=== PATIENT | female | born 1995 | race Caucasian/White ===

== ENCOUNTER 2016-08-31 23:30 | Emergency (ER) | payer OTHER ==
--- NOTE | ~2016-08-31 | CT4 ---
[facility]. [facility] A Service of [facility] RADIOLOGY TEXT RESULTS PATIENT: EDI MEDEL LOCATION: SED : 95 UNIT #: [id number] AGE: [address]: Demetrius Lunsford MD SEX: F ORDER DR: [id number] [address] [address] [id number] E MR#: [id number] Acc #: [id number] NAME: EDI MEDEL. : 1995 SEX: F STUDY DATE/TIME: 09/01/2016 0:20 UNIT: SED ROOM: STUDY DESCRIPTION: CT Abd and Pelv Wo Cont Attending Physician: Demetrius Lunsford M.D. Ordering Physician: Demetrius Lunsford M.D. Primary Care Physician: Karthik Wu M.D. MEDICAL IMAGING REPORT This report is preliminary unless electronic signature is present. EXAM CT abdomen and pelvis, noncontrast, 09/01/2016 HISTORY 21-year-old female in the ED complaining of new onset right flank pain and dysuria beginning earlier this evening. She has a history of kidney stones. TECHNIQUE CT examination of the abdomen and pelvis without oral or IV contrast, using kidney stone protocol. This CT exam was performed with one or more of the following radiation dose reduction techniques: Automatic exposure control, adjustment of mA and/or kV according to patient size, and iterative reconstruction. COMPARISON 02/19/2014 FINDINGS There are multiple nonobstructing calculi scattered throughout both kidneys measuring between 1 and 5 mm in size. These have increased in size and number since the previous study. However, there is no visible stone material within the ureters or urinary bladder, and there is no evidence of urinary obstruction at this time. Diffuse hepatic steatosis. Mild hepatosplenomegaly. Nondistended gallbladder. No bile duct dilatation. Pancreas is unremarkable. Small bowel and colon are normal in caliber and appearance, as imaged. The appendix is normal. PELVIS FINDINGS: Moderate-volume stool within the rectosigmoid colon. Uterus, ovaries, bladder and rectum are within normal limits. No inguinal STS. [facility] A Service of [facility] RADIOLOGY TEXT RESULTS PATIENT: EDI MEDEL LOCATION: [facility] [place] : [birth year] UNIT #: [id number] AGE: [address]: Demetrius Lunsford MD SEX: F ORDER DR: hernia. Tiny umbilical hernia contains pelvic fat. Limited lung base images are negative. IMPRESSION 1. No acute abnormality within the abdomen or pelvis. 2. Multiple small, nonobstructing calculi scattered throughout both kidneys measuring between 1 and 5 mm in size. These have increased slightly in size and number since 02/19/2014. No ureteral stone material. No evidence of urinary obstruction at this time. 3. Hepatosplenomegaly and diffuse hepatic steatosis. Dictated by... Zurdo Puentes M.D. THIS IS AN ELECTRONICALLY VERIFIED REPORT Zurdo Puentes M.D. at 09/01/2016 6:01 AM BERKLEY/nicole TD: 09/01/2016 03:48 JOB #: [id number] MEDICAL IMAGING REPORT Page 1 of 1
[~2016-08-31 23:30] MED LIST: AMOXICILLIN500 M1 PO; DOC-Q-LACE100 MG PO; FLOMAX0.4 M1 PO; HYDROCODON-ACE1 EAC7 PO; MONONESSA 28 T1 EACH; NAPROXEN SODIU550 MG PO; PEPCID AC20 M2 PO; SINGULAIR PO; ZOFRAN ODT4 MG PO; ZYRTEC PO; ZYRTEC5 M4 PO
[2016-08-31 23:51] LABS: URINE SOURCE CLEAN CATCH
[2016-08-31 23:51] LABS: BASOPHIL% 0.6 % (0-2.5); EOSINOPHIL# 0.1 X10e3 (0-0.7); EOSINOPHIL% 1.3 % (0.0-7.0); HEMATOCRIT 37.3 % (35.0-45.0); HEMOGLOBIN 12.7 gm/dL (12.0-16.0); LYMPHOCYTE# 2.6 X10e3 (1.0-3.5); LYMPHOCYTE% 33.1 % (17.0-45.0); MEAN CELL VOLUME 90.4 FL (83-96); MEAN CORPUSCULAR HEMOGLOBIN 30.7 PG (28-34); MEAN PLATELET VOLUME 7.1 FL (6.5-11.5); MONOCYTE# 0.5 X10e3 (0-1.0); MONOCYTE% 6.5 % (3.0-12.0); NEUTROPHIL# 4.6 X10e3 (1.5-7.1); NEUTROPHIL% 58.5 % (40-75); PLATELET COUNT 226 X10e3 (140-420); RED BLOOD COUNT 4.13 X10e (3.90-5.30); RED CELL DISTRIBUTION WIDTH 12.9 % (11.0-15.5); WHITE BLOOD COUNT 7.9 X10e3 (4.0-10.5)
[2016-08-31 23:53] LABS: URINE APPEARANCE HAZY; URINE BILIRUBIN NEG (NEG); URINE BLOOD NEG (NEG); URINE COLOR YELLOW; URINE GLUCOSE NEG (NORM); URINE KETONE TRACE (NEG); URINE LEUKOCYTE ESTERASE 1+ (NEG); URINE NITRATE POS (NEG); URINE PROTEIN 1+ (NEG); URINE SPECIFIC GRAVITY 1.015 (1.003-1.035)
[2016-08-31 23:54] LABS: MICRO INDICATED? YES
[2016-08-31 23:54] LABS: DIFF IND NO
[2016-08-31 23:56] LABS: CULTURE INDICATED? YES; URINE BACTERIA 1+ (NEG)
[2016-08-31 23:57] LABS: URINE SQUAMOUS EPITHELIAL CELL FEW /[HPF]; URINE TRANSITIONAL EPI CELLS FEW /[HPF]; URINE WBC 25-50 /[HPF] (0-5)
[2016-09-01 00:05] LABS: CALCIUM SERUM 9.4 mg/dL (8.4-10.2); GLOM FILT RATE Estimated 80.5 mL/min (>60); POTASSIUM 4.1 mmol/L (3.5-5.1)
[2017-01-27] MEDS ORDERED: HYDROCODON-ACE1 EAC7 PO (15:31)
[2017-01-27] MEDS ORDERED: FLOMAX0.4 M1 PO (15:32)
== END 2016-09-01 01:21 | disposition home or self-care (01) ==
LOC: SED 23:30
PROVIDERS: Emergency Medicine
DX: N30.00 Acute cystitis without hematuria (principal); F17.200 Nicotine dependence, unspecified, uncomplicated
CPT/HCPCS: 36415; 74176; 80048; 81003; 84703; 85025; 87086; 87088; 87186; 99284

== ENCOUNTER 2016-10-23 19:20 | Emergency (ER) | payer OTHER ==
[2016-10-23 19:46] LABS: URINE SOURCE CLEAN CATCH
[2016-10-23 19:49] LABS: URINE APPEARANCE CLEAR; URINE BILIRUBIN NEG (NEG); URINE BLOOD NEG (NEG); URINE COLOR YELLOW; URINE GLUCOSE NEG (NORM); URINE KETONE NEG (NEG); URINE LEUKOCYTE ESTERASE NEG (NEG); URINE NITRATE NEG (NEG); URINE PROTEIN TRACE (NEG); URINE SPECIFIC GRAVITY 1.025 (1.003-1.035); URINE UROBILINOGEN 0.2 MG/DL (NORM)
[2016-10-23 19:51] LABS: MICRO INDICATED? YES
[2016-10-23 19:54] LABS: CULTURE INDICATED? NO; URINE BACTERIA NEG (NEG); URINE MUCUS PRESENT; URINE RBC 0-2 /[HPF] (0-2); URINE SQUAMOUS EPITHELIAL CELL MODERATE /[HPF]; URINE WBC 0-2 /[HPF] (0-5)
[2017-01-27] MEDS ORDERED: HYDROCODON-ACE1 EAC7 PO (15:31)
[2017-01-27] MEDS ORDERED: FLOMAX0.4 M1 PO (15:32)
== END 2016-10-23 20:09 | disposition home or self-care (01) ==
LOC: SED 19:20
PROVIDERS: Physician Assistant
DX: R10.84 Generalized abdominal pain (principal); J45.909 Unspecified asthma, uncomplicated; F90.9 Attention-deficit hyperactivity disorder, unspecified type; Z88.8 Allergy status to other drugs, medicaments and biological substances; F17.210 Nicotine dependence, cigarettes, uncomplicated; F31.9 Bipolar disorder, unspecified
CPT/HCPCS: 81003; 84703; 99282

== ENCOUNTER 2016-10-27 19:40 | Emergency (ER) | payer OTHER ==
--- NOTE | ~2016-10-27 | CR72 ---
[facility] A Service of [facility] & [facility] RADIOLOGY TEXT RESULTS PATIENT: EDI MEDEL LOCATION: [facility] : 95 UNIT #: [id number] AGE: [address]: Geovanna Multani APRN SEX: F ORDER DR: [id number] [facility] [address] [place], [place] [address] [id number] E MR#: [id number] Acc #: [id number] NAME: EDI MEDEL. : 1995 SEX: F STUDY DATE/TIME: 10/27/2016 20:43 UNIT: [facility] ROOM: STUDY DESCRIPTION: CR Chest Single View Portable Attending Physician: Geovanna Multani A.P.R.N. Ordering Physician: Geovanna Multani A.P.R.N. Primary Care Physician: Karthik Wu M.D. MEDICAL IMAGING REPORT This report is preliminary unless electronic signature is present EXAM Portable chest HISTORY Chest pain, mid back pain since yesterday. COMPARISON 05/04/2015 FINDINGS A single AP portable view of the chest shows both lungs to be clear. The heart is normal in size. The mediastinal contour is normal. No significant bone abnormalities are seen. IMPRESSION Normal portable chest. Dictated by... João Parra M.D. THIS IS AN ELECTRONICALLY VERIFIED REPORT João Parra M.D. at 10/28/2016 2:49 PM CRISTIANE/harris TD: 10/28/2016 03:33 JOB #: [id number] MEDICAL IMAGING REPORT Page 1 of 1 COPY
--- NOTE | ~2016-10-27 | EKG ---
PATIENT: EDI MEDEL UNIT #: [id number] Ventricular Rate: 60 BPM Atrial Rate: 60 BPM P-R Interval: 122 ms QRS Duration: 84 ms Q-T Interval: 436 ms QTC Calculation(Bezet): 436 ms P [place]: 17 degrees Calculated R [place]: 17 degrees Calculated T [place]: 23 degrees Diagnosis Line: Sinus rhythm with marked sinus arrhythmia Diagnosis Line: Minimal voltage criteria for LVH, may be normal Diagnosis Line: variant Diagnosis Line: Borderline ECG Diagnosis Line: Diagnosis Line: Confirmed by NEGRO BYERS MD ([id number]) on Diagnosis Line: 10/29/2016 7:13:48 AM INTERPRETING MD: JAKI
[2016-10-27 20:40] LABS: BASOPHIL# 0.1 X10e3 (0-0.3); BASOPHIL% 0.5 % (0-2.5); EOSINOPHIL# 0.1 X10e3 (0-0.7); EOSINOPHIL% 1.2 % (0.0-7.0); HEMATOCRIT 40.5 % (35.0-45.0); HEMOGLOBIN 13.8 gm/dL (12.0-16.0); LYMPHOCYTE% 31.3 % (17.0-45.0); MEAN CELL VOLUME 87.6 FL (83-96); MEAN CORPUSCULAR HEMOGLOBIN 29.8 PG (28-34); MEAN PLATELET VOLUME 7.5 FL (6.5-11.5); MONOCYTE# 0.5 X10e3 (0-1.0); MONOCYTE% 5.5 % (3.0-12.0); NEUTROPHIL% 61.5 % (40-75); PLATELET COUNT 239 X10e3 (140-420); RED BLOOD COUNT 4.63 X10e (3.90-5.30); RED CELL DISTRIBUTION WIDTH 13.4 % (11.0-15.5); WHITE BLOOD COUNT 9.7 X10e3 (4.0-10.5)
[2016-10-27 20:41] LABS: DIFF IND NO
[2016-10-27 20:43] LABS: URINE SOURCE CLEAN CATCH
[2016-10-27 20:53] LABS: URINE APPEARANCE CLEAR; URINE BILIRUBIN NEG (NEG); URINE BLOOD NEG (NEG); URINE COLOR YELLOW; URINE GLUCOSE NEG (NEG); URINE KETONE NEG (NEG); URINE LEUKOCYTE ESTERASE NEG (NEG); URINE NITRATE NEG (NEG); URINE PH 6.5 (5-8); URINE PROTEIN NEG (NEG); URINE SPECIFIC GRAVITY 1.019 (1.003-1.035); URINE UROBILINOGEN 0.2 MG/DL (NEG)
[2016-10-27 20:58] LABS: ALBUMIN SERUM 4.2 g/dL (3.5-5.0); BILIRUBIN, DIRECT 0.1 mg/dL (0.0-0.2); BILIRUBIN,INDIRECT 0.8 mg/dL (0.0-0.9); BILIRUBIN,TOTAL 0.9 mg/dL (0.2-2.0); BUN/CREATININE RATIO 10.76; CALCIUM SERUM 9.3 mg/dL (8.4-10.2); CREATININE SERUM 1.3 mg/dL (0.6-1.4); GLOM FILT RATE Estimated 58.6 mL/min (>60); PARTIAL THROMBOPLASTIN TIME 26.4 SECONDS (23.5-31.3); POTASSIUM 3.8 mmol/L (3.5-5.1); PROTEIN TOTAL SERUM 7.1 g/dL (6.0-8.3); PROTHROMBIN TIME (PATIENT) 10.7 SECONDS (10.0-11.7)
[2016-10-27 20:59] LABS: POC - CKMB <1.0 ng/mL (0.0-7.9); POC - TROPONIN <0.05 ng/mL (<=0.05)
[2016-10-27 21:02] LABS: CULTURE INDICATED? NO
[2017-01-27] MEDS ORDERED: HYDROCODON-ACE1 EAC7 PO (15:31)
[2017-01-27] MEDS ORDERED: FLOMAX0.4 M1 PO (15:32)
== END 2016-10-27 22:20 | disposition home or self-care (01) ==
LOC: CED 19:40 → CFTX 19:40
PROVIDERS: Nurse Practitioner
DX: R07.89 Other chest pain (principal); R11.2 Nausea with vomiting, unspecified; M62.830 Muscle spasm of back; J45.909 Unspecified asthma, uncomplicated; F31.9 Bipolar disorder, unspecified; F17.210 Nicotine dependence, cigarettes, uncomplicated
CPT/HCPCS: 36415; 71010; 80048; 80076; 81003; 82150; 82553; 83690; 84484; 84703; 85025; 85379; 85610; 85730; 93005; 96374; 96375; 99284; J1885; J2405

== ENCOUNTER 2017-01-17 03:19 | Emergency (ER) | payer OTHER ==
[~2017-01-17] VITALS: Ht 162.6 cm; Wt 96.6 kg
[2017-01-17] MEDS ORDERED: PAXIL10 MG PO (03:26)
[2017-01-27] MEDS ORDERED: HYDROCODON-ACE1 EAC7 PO (15:31)
[2017-01-27] MEDS ORDERED: FLOMAX0.4 M1 PO (15:32)
== END 2017-01-17 04:28 | disposition home or self-care (01) ==
LOC: SED 03:19
DX: J45.901 Unspecified asthma with (acute) exacerbation (principal); F31.9 Bipolar disorder, unspecified; F41.9 Anxiety disorder, unspecified; F90.9 Attention-deficit hyperactivity disorder, unspecified type; F17.200 Nicotine dependence, unspecified, uncomplicated
CPT/HCPCS: 87651; 94640; 99283

== ENCOUNTER 2017-01-18 00:47 | Emergency (ER) | payer OTHER ==
[~2017-01-18] VITALS: Ht 162.6 cm; Wt 96.6 kg
[~2017-01-18 00:47] MED LIST changes: +PAXIL10 MG PO
[2017-01-18 02:37] LABS: BASOPHIL% 0.3 % (0-2.5); DIFF IND NO; HEMATOCRIT 39.3 % (35.0-45.0); HEMOGLOBIN 13.3 gm/dL (12.0-16.0); LYMPHOCYTE# 2.1 X10e3 (1.0-3.5); LYMPHOCYTE% 15.7 % (17.0-45.0); MEAN CELL VOLUME 89.4 FL (83-96); MEAN CORPUSCULAR HEMOGLOBIN 30.2 PG (28-34); MEAN CORPUSCULAR HGB CONC 33.8 g/dL (30-36); MEAN PLATELET VOLUME 7.9 FL (6.5-11.5); MONOCYTE% 7.4 % (3.0-12.0); NEUTROPHIL# 10.4 X10e3 (1.5-7.1); NEUTROPHIL% 76.6 % (40-75); PLATELET COUNT 273 X10e3 (140-420); RED BLOOD COUNT 4.39 X10e (3.90-5.30); RED CELL DISTRIBUTION WIDTH 13.5 % (11.0-15.5); WHITE BLOOD COUNT 13.5 X10e3 (4.0-10.5)
[2017-01-18 02:49] LABS: AMPHETAMINE NEG (NEG); BARBITURATES NEG (NEG); BENZODIAZEPINES NEG (NEG); COCAINE NEG (NEG); MARIJUANA NEG (NEG); OPIATES NEG (NEG); TRICYCLIC ANTIDEPRESSANTS NEG (NEG); U METHADONE NEG (NEG)
[2017-01-18 03:08] LABS: ACETAMINOPHEN <10 ug/mL; ALCOHOL BLOOD <5 mg/dL (0); BLOOD UREA NITROGEN 12 mg/dL (9-23); CALCIUM SERUM 9.8 mg/dL (8.4-10.2); CARBON DIOXIDE 26 mmol/L (22-31); CHLORIDE 106 mmol/L (100-111); CREATININE SERUM 1.2 mg/dL (0.6-1.4); GLOM FILT RATE Estimated 64.6 mL/min (>60); GLUCOSE FASTING 115 mg/dL (70-110); POTASSIUM 3.6 mmol/L (3.5-5.1); SALICYLATE <4.0 mg/dL; SODIUM 139 mmol/L (135-145)
[2017-01-27] MEDS ORDERED: HYDROCODON-ACE1 EAC7 PO (15:31)
[2017-01-27] MEDS ORDERED: FLOMAX0.4 M1 PO (15:32)
== END 2017-01-18 10:23 | disposition home or self-care (01) ==
LOC: CED 00:47
PROVIDERS: Nurse Practitioner
DX: S70.311A Abrasion, right thigh, initial encounter (principal); F32.9 Major depressive disorder, single episode, unspecified; Z79.899 Other long term (current) drug therapy; Z23 Encounter for immunization; Z88.8 Allergy status to other drugs, medicaments and biological substances; X78.9XXA Intentional self-harm by unspecified sharp object, initial encounter
CPT/HCPCS: 36415; 80048; 80307; 84703; 85025; 90471; 90715; 99285; G0480

== ENCOUNTER 2017-01-25 16:05 | Emergency (ER) | payer OTHER ==
[~2017-01-25] VITALS: Ht 160 cm; Wt 95.2 kg
--- NOTE | ~2017-01-25 | CT4 ---
[facility] A Service [facility] RADIOLOGY TEXT RESULTS PATIENT: EDI MEDEL LOCATION: SED : [birth year] UNIT #: [id number] AGE: [address]: COREY MITCHELL SEX: F ORDER DR: [id number] [place] [id number] E MR#: [id number] Acc #: [id number] NAME: EDI MEDEL. : 1995 SEX: F STUDY DATE/TIME: 01/25/2017 18:23 UNIT: SED ROOM: STUDY DESCRIPTION: CT Abd and Pelv Wo Cont Attending Physician: Corey Mitchell R.N. Ordering Physician: Corey Mitchell R.N. Primary Care Physician: Karthik Wu M.D. MEDICAL IMAGING REPORT This report is preliminary unless electronic signature is present. EXAM CT scan of the abdomen and pelvis without contrast 01/25/2017 HISTORY Left lower abdominal pain extending into the back for 2 days. Urinary tract infection. Evaluate for obstructing renal calculus. TECHNIQUE Spiral CT was performed through the abdomen and pelvis without oral or intravenous contrast administration using renal stone protocol. This CT examination was performed with one or more of the following radiation dose reduction techniques: automatic exposure control, adjustment of mA and/or kV according to patient size, and iterative reconstruction. FINDINGS ABDOMEN: There is mild left hydronephrosis and hydroureter due to a 5 mm obstructing stone located just distal to the left ureteropelvic junction. There are multiple nonobstructing renal stones bilaterally. There is fatty infiltration of the liver. The spleen, pancreas, gallbladder and biliary tree and adrenal glands are normal. PELVIS: The gut, mesenteric and cecilia structures are normal. There is minimal free fluid in the pelvis. IMPRESSION 1. Mild left hydronephrosis due to a 5 mm obstructing stone located just distal to the left ureteropelvic junction. 2. Multiple nonobstructing renal stones bilaterally. 3. Fatty infiltration of the liver. [facility] A Service [facility] RADIOLOGY TEXT RESULTS [facility]: [id number] [birth year] UNIT #: [id number] AGE: [address]: COREY MITCHELL SEX: F ORDER DR: Dictated by... Lul Mccain M.D. THIS IS AN ELECTRONICALLY VERIFIED REPORT Lul Mccain M.D. at 01/26/2017 2:21 PM DAMIAN/pradeep TD: 01/26/2017 12:32 JOB #: [id number] MEDICAL IMAGING REPORT Page 1 of 1
[2017-01-25 17:52] LABS: BASOPHIL# 0.1 X10e3 (0-0.3); BASOPHIL% 1.1 % (0-2.5); EOSINOPHIL# 0.1 X10e3 (0-0.7); EOSINOPHIL% 1.1 % (0.0-7.0); HEMATOCRIT 42.2 % (35.0-45.0); HEMOGLOBIN 14.4 gm/dL (12.0-16.0); LYMPHOCYTE# 2.9 X10e3 (1.0-3.5); LYMPHOCYTE% 25.8 % (17.0-45.0); MEAN CELL VOLUME 90.2 FL (83-96); MEAN CORPUSCULAR HEMOGLOBIN 30.8 PG (28-34); MEAN CORPUSCULAR HGB CONC 34.2 g/dL (30-36); MEAN PLATELET VOLUME 7.8 FL (6.5-11.5); MONOCYTE# 0.7 X10e3 (0-1.0); MONOCYTE% 5.8 % (3.0-12.0); NEUTROPHIL# 7.5 X10e3 (1.5-7.1); NEUTROPHIL% 66.2 % (40-75); PLATELET COUNT 246 X10e3 (140-420); RED BLOOD COUNT 4.68 X10e (3.90-5.30); RED CELL DISTRIBUTION WIDTH 13.4 % (11.0-15.5); WHITE BLOOD COUNT 11.3 X10e3 (4.0-10.5)
[2017-01-25 18:01] LABS: URINE SOURCE CLEAN CATCH
[2017-01-25 18:04] LABS: DIFF IND NO
[2017-01-25 18:04] LABS: URINE APPEARANCE SL CLOUDY; URINE BILIRUBIN NEG (NEG); URINE BLOOD 3+ (NEG); URINE COLOR YELLOW; URINE GLUCOSE NEG (NORM); URINE KETONE NEG (NEG); URINE LEUKOCYTE ESTERASE NEG (NEG); URINE NITRATE NEG (NEG); URINE PROTEIN NEG (NEG); URINE UROBILINOGEN 0.2 MG/DL (NORM)
[2017-01-25 18:06] LABS: MICRO INDICATED? YES
[2017-01-25 18:10] LABS: ALBUMIN SERUM 4.3 g/dL (3.5-5.0); BILIRUBIN, DIRECT 0.1 mg/dL (0.0-0.2); BILIRUBIN,INDIRECT 0.8 mg/dL (0.0-0.9); BILIRUBIN,TOTAL 0.9 mg/dL (0.2-2.0); BUN/CREATININE RATIO 16.66; CALCIUM SERUM 9.1 mg/dL (8.4-10.2); CREATININE SERUM 0.9 mg/dL (0.6-1.4); GLOM FILT RATE Estimated 91.5 mL/min (>60); POTASSIUM 3.7 mmol/L (3.5-5.1)
[2017-01-25 18:31] LABS: CULTURE INDICATED? YES; URINE BACTERIA 1+ (NEG); URINE RBC 100-200 /[HPF] (0-2); URINE SQUAMOUS EPITHELIAL CELL FEW /[HPF]
[2017-01-27] MEDS ORDERED: HYDROCODON-ACE1 EAC7 PO (15:31)
[2017-01-27] MEDS ORDERED: FLOMAX0.4 M1 PO (15:32)
== END 2017-01-25 20:16 | disposition home or self-care (01) ==
LOC: SED 16:05
PROVIDERS: Nurse Practitioner
DX: N13.2 Hydronephrosis with renal and ureteral calculous obstruction (principal); J45.909 Unspecified asthma, uncomplicated; R01.1 Cardiac murmur, unspecified; F17.210 Nicotine dependence, cigarettes, uncomplicated; Z79.899 Other long term (current) drug therapy; Z88.8 Allergy status to other drugs, medicaments and biological substances
CPT/HCPCS: 36415; 74176; 80048; 80076; 81003; 82150; 83690; 84703; 85025; 87086; 96374; 99284; J1885